=== PATIENT | female | born 1955 | race African-American/Black ===

== ENCOUNTER 2016-12-06 12:28 | Emergency (ER) | payer OTHER ==
--- NOTE | ~2016-12-06 | CR150 ---
[facility] A Service of [facility] & [facility] RADIOLOGY TEXT RESULTS PATIENT: KHALIF JACKSON LOCATION: SED : 57 UNIT #: [id number] AGE: [address]: SHAZIA WHYTE SEX: F ORDER DR: [id number] [place] [address] [id number] E MR#: [id number] Acc #: [id number] NAME: KHALIF JACKSON : 1955 SEX: F STUDY DATE/TIME: 12/06/2016 13:54 UNIT: SED ROOM: STUDY DESCRIPTION: CR Hip Min 2 Views Lt Attending Physician: Brandi Keller Ordering Physician: Physician Non-Staff Primary Care Physician: Dorothea Borges A.P.R.N. MEDICAL IMAGING REPORT This report is preliminary unless electronic signature is present. EXAM Left hip and pelvis, 12/06 INDICATION Pain and swelling in the left hip for 3-4 months. No trauma. FINDINGS AP pelvis was obtained in addition to a frogleg left hip. Comparison made with 12/12/2015. Left hip arthroplasty demonstrates normal alignment. No acute fractures are seen. Calcification in the left hemipelvis may be secondary to a fibroid. No sacroiliac joint diastasis. IMPRESSION Well-positioned left hip arthroplasty. No acute findings. No significant interval change. Dictated by... Gerald Odonnell Jr., M.D. THIS IS AN ELECTRONICALLY VERIFIED REPORT Gerald Odonnell Jr., M.D. at 12/07/2016 2:19 PM MAURICE/chuck TD: 12/06/2016 15:12 JOB #: [id number] MEDICAL IMAGING REPORT Page 1 of 1
[~2016-12-06 12:28] MED LIST: BACLOFEN10 MG PO; COUMADIN; COUMADIN PO; HYDROCODON-ACE1 EAC9 PO; IRON PO; IRON SUPPLEMENT; IRON1 TAB; PREDNISONE PO; ULTRAM PO
[2016-12-06] MEDS ORDERED: FERROUS FUMARAT89 MG (12:35)
[2016-12-06] MEDS ORDERED: COUMADIN (12:35)
== END 2016-12-06 14:43 | disposition home or self-care (01) ==
LOC: SED 12:28
DX: M25.552 Pain in left hip (principal); G89.29 Other chronic pain; I10 Essential (primary) hypertension; E78.5 Hyperlipidemia, unspecified; Z86.718 Personal history of other venous thrombosis and embolism
CPT/HCPCS: 73502; 99283